=== PATIENT | female | born 1965 | race Caucasian/White ===

== ENCOUNTER 2016-12-10 09:10 | Emergency (ER) | payer BC ==
[2016-12-10 09:57] VITALS: BP 128/84
--- NOTE | 2016-12-10 11:18 | UC ---
Throat Pain/Nasal Lai HPI - HPI Summary HPI Summary: PT WITH H/O RECURRENT SINUSITIS, S/P SINUS SURG X2, P/W COUGH, SINUS CONGESTION/ PAIN/HEADACHE X 4 DAYS. - History of Current Complaint Chief Complaint: UCGeneralIllness Stated Complaint: SORE THROAT Time Seen by Provider: 12/10/16 10:48 Hx Obtained From: Patient ?: No Onset/Duration: Gradual Onset, Lasting Days - 4, Still Present Severity: Moderate Pain Intensity: 5 Associated Signs & Symptoms: Positive: Dysphagia - MILD PAIN, Hoarseness, Sinus Discomfort, Nasal Discharge. Negative: Drooling, Wheezing, Fever, Vomiting, Rash Related History: Prior ENT Surgery - Allergies/Home Medications Allergies/Adverse Reactions: Allergies Allergy/AdvReac Type Severity Reaction Status Date / Time No Known Allergies Allergy Verified 07/04/16 16:01 PMH/Surg Hx/FS Hx/Imm Hx Previously Healthy: Yes GI/ History Of: Reports: Gastroesophageal Reflux Psychological History Of: Reports: Depression Cancer History Of: Denies: Breast Cancer - Surgical History Surgical History: Yes Surgery Procedure, Year, and Place: appy 1997,sinus surgery and ; hysterectomy ; tubal ligation - Family History Known Family History: Positive: Hypertension Negative: Cardiac Disease, Diabetes - Social History Occupation: Employed Full-time Alcohol Use: None Substance Use Type: None Smoking Status (MU): Never Smoked Tobacco - Immunization History Most Recent Influenza Vaccination: 09/2014 Review of Systems ENT: Sore Throat, Ear Ache, Nasal Discharge, Other - HPI Respiratory: Cough Cardiovascular: Chest Pain - PLEURITIC Gastrointestinal: Negative Genitourinary: Negative Motor: Negative Neurovascular: Negative Musculoskeletal: Negative Neurological: Headache - SINUS Psychological: Negative All Other Systems Reviewed And Are Negative: Yes Physical Exam Triage Information Reviewed: Yes Appearance: Well-Appearing, No Pain Distress, Well-Nourished Vital Signs: Initial Vital Signs Temp 98.3 F 12/10/16 09:52 Pulse 80 12/10/16 09:52 Resp 16 12/10/16 09:52 BP 128/84 12/10/16 09:52 Pulse Ox 100 12/10/16 09:52 Vital Signs Reviewed: Yes Eyes: Positive: Conjunctiva Clear. Negative: Discharge ENT: Positive: Hearing grossly normal, Pharyngeal erythema, Nasal congestion, Nasal drainage, TMs normal, Muffled/hoarse voice - MILD. Negative: Tonsillar swelling, Tonsillar exudate, Trismus Dental Exam: Normal Neck: Positive: Supple, Nontender, No Lymphadenopathy Respiratory: Positive: Lungs clear, Normal breath sounds, No respiratory distress, No accessory muscle use, Expiration - PROLONGED Cardiovascular: Positive: RRR, No Murmur Musculoskeletal Exam: Normal Neurological: Positive: Alert, Muscle Tone Normal Psychological: Positive: Age Appropriate Behavior Skin Exam: Normal Throat Pain/Nasal Course/Dx - Differential Dx/Diagnosis Differential Diagnosis/HQI/PQRI: Pharyngitis, Sinusitis, Tonsillitis, URI Provider Diagnoses: SINUSITIS, BRONCHOSPASM Discharge - Discharge Plan Condition: Stable Disposition: HOME Prescriptions: Albuterol HFA INHALER* [Ventolin HFA Inhaler*] 2 puff INH Q4H PRN #1 mdi PRN Reason: Sob/Wheezing Amoxicillin/Clavulanate TAB* [Augmentin TAB 875*] 875 mg PO BID #20 tab guaiFENesin ER TAB [Mucinex*] 600 mg PO BID PRN #1 box PRN Reason: Cough guaiFENesin/CODIEN 100MG-10MG* [Robitussin AC 100Mg-10Mg*] 5 - 10 ml PO BEDTIME PRN #100 udc MDD 10ml PRN Reason: Cough Patient Education Materials: Amoxicillin/Clavulanate Potassium (By mouth), Sinusitis (ED), Bronchospasm (ED) Referrals: China Lugo MD [Primary Care Provider] - If Needed Additional Instructions: TRY USING THE KIMBERLY POT IN THE MORNINGS DISCUSSED. YOU MUST ALWAYS USE CLEAN WATER. REMEMBER, POSTURE PLAYS AN IMPORTANT ROLE IN SINUS DRAINAGE. SO, DON'T SLOUCH, MOVE YOUR NECK AND BREATHE. ANTIBIOTICS ARE NOT CURRENTLY INDICATED FOR YOUR CONDITION. HOWEVER, IF YOUR SYMPTOMS PERSIST FOR 4-5 MORE DAYS, YOU CAN START THE FOLLOWING MEDICINE: AUGMENTIN ANYTIME YOU TAKE AN ANTIBIOTIC IT IS VERY IMPORTANT TO REPLENISH YOUR BODY'S SUPPLY OF "GOOD" BACTERIA. YOU CAN DO THIS BY EATING HIGH QUALITY CULTURED FOODS SUCH LOCAL YOGURT, SOUR KRAUT AND MILADYS ALDAIR. YOU CAN ALSO TAKE A PROBIOTIC SUPPLEMENT.
== END 2016-12-10 11:14 | disposition home or self-care (01) ==
LOC: UCCORT 09:10
DX: J32.9 Chronic sinusitis, unspecified (principal); J98.01 Acute bronchospasm; Z98.890 Other specified postprocedural states
CPT/HCPCS: 99212; G0463

== ENCOUNTER 2017-10-11 10:55 | Emergency (ER) | payer BC ==
[2017-10-11 11:46] VITALS: BP 115/63
--- NOTE | 2017-10-11 12:22 | UC ---
Throat Pain/Nasal Lai HPI - HPI Summary HPI Summary: SIXTEEN DAYS OF SINUS CONGESTION, CHILLS, FACIAL PRESSURE AND COUGH. HISTORY OF SINUS SURGERY X2, MORE THAN FIVE YEARS AGO, DUE TO FREQUENT SINUS INFECTIONS. - History of Current Complaint Chief Complaint: UCGeneralIllness Stated Complaint: SINUS COMPLAINT Time Seen by Provider: 10/11/17 11:53 Hx Obtained From: Patient Onset/Duration: Gradual Onset, Lasting Weeks Severity: Moderate Pain Intensity: 3 Pain Scale Used: 0-10 Numeric Cough: Nonproductive Associated Signs & Symptoms: Positive: Sinus Discomfort, Nasal Discharge - Epiglottits Risk Factors Epiglottis Risk Factors: Negative - Allergies/Home Medications Allergies/Adverse Reactions: Allergies Allergy/AdvReac Type Severity Reaction Status Date / Time No Known Allergies Allergy Verified 10/11/17 11:46 Home Medications: Home Medications Ranitidine HCl [Eq Ranitidine] 75 mg PO DAILY 10/11/17 [History Confirmed ] PMH/Surg Hx/FS Hx/Imm Hx Previously Healthy: Yes - Surgical History Surgical History: Yes Surgery Procedure, Year, and Place: appy 1997,sinus surgery and ; hysterectomy ; tubal ligation. Left knee, repair miniscus - Family History Known Family History: Positive: Hypertension Negative: Cardiac Disease, Diabetes - Social History Occupation: Employed Full-time Lives: With Family Alcohol Use: Rare Substance Use Type: None Smoking Status (MU): Never Smoked Tobacco - Immunization History Most Recent Influenza Vaccination: 09/2014 Review of Systems Constitutional: Chills Skin: Negative Eyes: Negative ENT: Nasal Discharge, Sinus Congestion, Sinus Pain/Tenderness Respiratory: Cough Cardiovascular: Negative Gastrointestinal: Negative Genitourinary: Negative Motor: Negative Neurovascular: Negative Musculoskeletal: Negative Neurological: Negative Psychological: Negative Is Patient Immunocompromised?: No All Other Systems Reviewed And Are Negative: Yes Physical Exam Triage Information Reviewed: Yes Appearance: No Pain Distress, Well-Nourished, Ill-Appearing Vital Signs: Initial Vital Signs Temp 97.2 F 10/11/17 11:43 Pulse 71 10/11/17 11:43 Resp 16 10/11/17 11:43 BP 115/63 10/11/17 11:43 Pulse Ox 98 10/11/17 11:43 Vital Signs Reviewed: Yes Eye Exam: Normal ENT: Positive: Pharynx normal, Nasal congestion, Nasal drainage, TM bulging, TM dull Dental Exam: Normal Neck exam: Normal Neck: Positive: Supple, Nontender, No Lymphadenopathy Respiratory Exam: Normal Respiratory: Positive: Chest non-tender, Lungs clear, Normal breath sounds, No respiratory distress, No accessory muscle use Cardiovascular Exam: Normal Cardiovascular: Positive: RRR, No Murmur, Pulses Normal, Brisk Capillary Refill Abdominal Exam: Normal Musculoskeletal Exam: Normal Neurological Exam: Normal Psychological Exam: Normal Skin Exam: Normal Throat Pain/Nasal Course/Dx - Differential Dx/Diagnosis Differential Diagnosis/HQI/PQRI: Pharyngitis, Sinusitis, URI Provider Diagnoses: SINUSITIS Discharge - Discharge Plan Condition: Stable Disposition: HOME Prescriptions: Amoxicillin/Clavulanate TAB* [Augmentin TAB 875*] 875 mg PO BID #20 tab Patient Education Materials: Sinusitis (ED) Forms: *Work Release Referrals: China Lugo MD [Primary Care Provider] -
== END 2017-10-11 12:14 | disposition home or self-care (01) ==
LOC: UCCORT 10:55
DX: J32.9 Chronic sinusitis, unspecified (principal)
CPT/HCPCS: 99212; G0463

== ENCOUNTER 2018-03-02 07:01 | Emergency (ER) | payer BC ==
--- OUTSIDE RECORDS SUMMARY | 2018-03-02 07:11 | XMS REPORT ---
:1965 Author Name sound, ultra Care Team Providers Name Role Phone sound, ultra Unavailable Unavailable PROBLEMS Type Condition ICD9-CM [id number] Onset Condition SNOMED Code Code Code Dates Status Problem Mastodynia N64.4 Active 60106813 Problem Unspecified urinary R32 Active 208014955 incontinence Problem Abnormal weight gain R63.5 Active 887116392 Problem Pelvic and perineal R10.2 Active 112064170 pain Problem Lichen sclerosus et L90.0 Active 61167319 atrophicus Problem Noninflammatory N90.9 Active 312847831 disorder of vulva and perineum, unspecified Problem Frequency of R35.0 Active 105202752 micturition Problem Other spondylosis, M47.896 Active 05499191 lumbar region ALLERGIES No Information ENCOUNTERS Encounter Location Date Diagnosis [facility] Jan, [place] [id number] [facility] Jan, [facility]63.5 [facility] ; Pelvic and perineal pain [place], [place] [id number] R10.2 and Other spondylosis, lumbar region M47.896 [facility] Jan, Pelvic and perineal pain OBGYN [facility] R10.2 [place], [place] [id number] [facility] Jan, Abnormal weight gain R63.5 [facility] ; Pelvic and perineal pain [place], [place] [id number] R10.2 ; Frequency of micturition R35.0 and Other spondylosis, lumbar region M47.896 [facility] Nov, [place]BG[place], [place] [id number] [facility] Aug, [place] [id number] [place] [facility] Aug, Lichen sclerosus et OBGYN [facility] atrophicus L90.0 and [place], [place] [id number] Allergic contact dermatitis, unspecified cause L23.9 [place] [facility] Aug, [facility] vulva and perineum, [place] [id number] unspecified N90.9 and Lichen sclerosus et atrophicus L90.0 [place] [facility] Jul, [place] [id number] [place] [facility] Jun, Lichen sclerosus [facility] L[facility]0 [place] [id number] [place] [facility] May, [place] [id number] [place] [facility] Dec, [place] [id number] [place] [facility] Dec, Lichen sclerosus et [facility] L90.0 [place] [id number] [place] [facility] Sep, Lichen sclerosus et [facility] L90.0 [place] [id number] [place] [facility] Jun, [place] [id number] [place] [facility] May, [place] [id number] [facility] May, Lichen sclerosus et [address] [place], atrophicus L90.0 and [place] [id number] Mastodynia N64.4 [place] [facility] Apr, VULVAR LESION 624.9 OBGYN [place], [place] [id number] [place] [facility] March, Encounter for gynecological OBGYN [facility] examination (general) [place], [place] [id number] (routine) with abnormal findings Z01.411 ; Encounter for screening mammogram for malignant neoplasm of breast Z12.31 ; Encounter for screening for malignant neoplasm of colon Z12.11 ; Frequency of micturition R35.0 ; Noninflammatory disorder of vulva and perineum, unspecified N90.9 and Mastodynia N64.4 [place] [facility] Jan, [place], [place] [id number] [facility] Feb, [place], [place] [id number] [facility] Feb, ROUTINE AUTOMATIC EDGER EXAMINATION OBGYN [facility] V72.31 ; SCREEN MAMMOGRAM [place] [id number] NEC V76.12 ; Vaginitis NOS 616.10 ; VULVAR LESION 624.9 and Folliculitis 704.8 [facility] Dec, [place] [id number] [facility] May, [place]BG[place] [id number] [facility] Apr, [place] [id number] [address] Apr, Urge incontinence [address]88.[address] [place], [place] [id number] [place] [facility] March, FEM STRESS INCONTINENCE OBGYN [facility] [address] [place] [id number] [place] [facility] March, [place] [id number] [place] [facility] March, FEM STRESS INCONTINENCE OBGYN [facility] 625.6 [place], [place] [id number] [place] [facility] Feb, ROUTINE AUTOMATIC EDGER EXAMINATION OBGYN [facility] V72.31 ; SCREEN MAMMOGRAM [place] [id number] NEC V76.12 and Incontinence 788.30 [place] [facility] Feb, [place] [id number] [place] [facility] Feb, [place] [id number] [place] [facility] Feb, [place] [id number] [place] [facility] Feb, [place], [place] [id number] [place] [facility] Dec, [place] [id number] [facility] Jan, ROUTINE AUTOMATIC EDGER EXAMINATION OBGYN [facility] V72.31 and SCREEN MAMMOGRAM [place], [place] [id number] NEC V76.12 [place] [facility] Aug, Anemia NOS 285.9 [place], [place] [id number] [facility] Jun, Irregular bleeding NOS OBGYN [facility] 626.4 ; Levator syndrome [place], [place] [id number] 564.6 and Dysmenorrhea 625.3 [place] [facility] May, Irregular bleeding NOS OBGYN [facility] [address] 626.4 ; Levator syndrome [place] [id number] 564.6 and Dysmenorrhea 625.3 [place] [facility] May, [place], [place] [id number] [facility] [address] [place], May, [facility] [place] [id number] [place] [facility] Apr, Irregular bleeding NOS OBGYN [facility] 626.4 ; Levator syndrome [place], [place] [id number] 564.6 and Dysmenorrhea 625.3 [place] [facility] Apr, [place], [place] [id number] [place] [facility] Apr, [place] [id number] [place] [facility] March, [place] [id number] [place] [facility] March, [place] [id number] [place] [facility] March, Irregular bleeding NOS OBGYN [facility] 626.4 ; Levator syndrome [place], [place] [id number] 564.6 and Dysmenorrhea 625.3 [place] [facility] [address], [facility] [place] [id number] [facility] Feb, Irregular bleeding NOS OBGYN [facility] 626.4 and Stenosis of [place], [place] [id number] cervix 622.4 [facility] Feb, [place] [id number] [facility] Feb, [place], [place] [id number] [facility] Feb, Irregular bleeding NOS OBGYN [facility] 626.4 [place] [id number] [place] [facility] Feb, Irregular bleeding NOS OBGYN [facility] 626.4 and Stenosis of [place], [place] [id number] cervix 622.4 [place] [facility] Jan, [place] [id number] [place] [facility] Jan, [place], [place] [id number] [facility] Jan, ROUTINE AUTOMATIC EDGER EXAMINATION OBGYN [facility] V72.31 ; PAP SMEAR W/O AUTOMATIC EDGER [place], [place] [id number] EXAM V76.2 and Irregular bleeding NOS 626.4 [place] [facility] Sep, [place] [id number] [place] [facility] Sep, ROUTINE AUTOMATIC EDGER EXAMINATION OBGYN [facility] V72.31 [place] [id number] [place] [facility] March, [place], [place] [id number] [place] [facility] Oct, VULVAR LESION 624.9 [place] [id number] [place] [facility] Sep, VULVAR LESION 624.9 [place], [place] [id number] [place] [facility] Sep, VULVAR LESION 624.9 [place], [place] [id number] [place] [facility] Aug, ROUTINE AUTOMATIC EDGER EXAMINATION OBGYN [facility] V72.31 and VULVAR LESION [place], [place] [id number] 624.9 [place] [facility] Jun, [place], [place] [id number] [place] [facility] Jun, [place], [place] [id number] [place] [facility] May, ROUTINE AUTOMATIC EDGER EXAMINATION OBGYN [facility] V72.31 [place], [place] [id number] [place] [facility] May, Menometrorrhagia 626.2 [place], [place] [id number] [place] [facility] Apr, Menometrorrhagia 626.2 and OBGYN [facility] Endometrial polyp 621.0 [place], [place] [id number] [place] [facility] Apr, Menometrorrhagia 626.2 and OBGYN [facility] Endometrial polyp 621.0 [place] [id number] [place] [facility] Apr, [place] [id number] [place] [facility] March, [place], [place] [id number] [place] [facility] March, Menometrorrhagia 626.2 ; OBGYN [facility] Endometrial polyp 621.0 and [place], [place] [id number] VULVAR LESION 624.9 [place] [facility] March, Menometrorrhagia 626.2 [place] [id number] [place] [facility] March, Menometrorrhagia 626.2 [place] [id number] [place] [facility] March, Menorrhagia 626.2 and OBGYN [facility] Endometrial polyp 621.0 [place], [place] [id number] [place] [facility] March, VULVAR LESION 624.9 [place], [place] [id number] [place] [facility] Feb, [place] [id number] [place] [facility] Feb, [place] [id number] [place] [facility] Feb, [place] [id number] [place] [facility] Feb, [place], [place] [id number] [place] [facility] Feb, [place] [id number] [place] [facility] Feb, [place], [place] [id number] [facility] 07 Feb, 2008 Menometrorrhagia 626.2 ; OBGYN [facility] VULVAR LESION 624.9 ; [place], [place] [id number] Levator syndrome 564.6 and [place] [employer] [place] NEC 780.79 [facility] 20 Sep, 2007 OBGYN [place], [place] [id number] IMMUNIZATIONS No Known Immunizations SOCIAL HISTORY Never Assessed REASON FOR REFERRAL FUNCTIONAL STATUS PLAN OF CARE VITAL SIGNS MEDICATIONS Unknown Medications PROCEDURES Procedure Date Ordered Result Body Site TRANSVAGINAL US, NON-OB February 02, 2018 RESULTS Name Result Date Reference Range Ultrasound : Pelvis REASON FOR VISIT MEDICAL (GENERAL) HISTORY Type Description Date Medical History History of anemia Medical History depression Medical History acid reflux Medical History lichen sclerosis Medical History blood clot in joint after surgery Surgical History BTL 1997 Surgical History appedectomy 1995 Surgical History sinus/deviated septum 2000 & 2010 Surgical History Novasure in office 04/25/08 Surgical History Hysteroscopy, D/C 03/09/12 Surgical History LTH, BS, cystoscopy 05/09/12 Surgical History arthroscopy, left knee 05/24 Hospitalization History childbirth Hospitalization History see above
--- OUTSIDE RECORDS SUMMARY | 2018-03-02 07:12 | XMS REPORT ---
:1965 Author Organization [facility] Address [address] [place] [address] Care Team Providers Name Role Phone Kassie Holland Unavailable Unavailable PROBLEMS Type Condition ICD9-CM [id number] Onset Condition SNOMED Code Code Code Dates Status Problem Mastodynia N64.4 Active 46857978 Problem Unspecified urinary R32 Active 226361034 incontinence Problem Abnormal weight gain R63.5 Active 314264334 Problem Pelvic and perineal R10.2 Active 268512692 pain Problem Lichen sclerosus et L90.0 Active 53701580 atrophicus Problem Noninflammatory N90.9 Active 701556992 disorder of vulva and perineum, unspecified Problem Frequency of R35.0 Active 304324798 micturition Problem Other spondylosis, M47.896 Active 57632591 lumbar region ALLERGIES No Known Allergies ENCOUNTERS Encounter Location Date Diagnosis [facility] 103 Jan, OBGYN [place], [place] [id number] [facility] 103 Jan, Abnormal weight gain R63.5 [facility] ; Pelvic and perineal pain [place], [place] [id number] R10.2 and Other spondylosis, lumbar region M47.896 [facility] 103 Jan, Pelvic and perineal pain OBGYN [facility] R10.2 [place], [place] [id number] [facility] 103 Jan, Abnormal weight gain R63.5 [facility] ; Pelvic and perineal pain [place], [place] [id number] R10.2 ; Frequency of micturition R35.0 and Other spondylosis, lumbar region M47.896 [facility] 103 Nov, OBGYN [place] [id number] [facility] 103 Aug, OBGYN [place], [place] [id number] [facility] 103 Aug, Lichen sclerosus et OBGYN [facility] atrophicus L90.0 and [place], [place] [id number] Allergic contact dermatitis, unspecified cause L23.9 [facility] 103 Aug, [facility], [place] [id number] unspecified N90.9 and Lichen sclerosus et atrophicus L90.0 [facility] 103 Jul, OBGYN [place] [id number] [facility] 103 Jun, [facility]hen [facility]osus [facility] L[facility]0 [place] [id number] [facility] 103 May, OBGYN [place] [id number] [facility] 103 Dec, OBGYN [place] [id number] [facility] 103 Dec, Lichen sclerosus et OBGYN [facility] atrophicus L90.0 [place] [id number] [facility] 103 Sep, Lichen sclerosus et OBGYN [facility] atrophicus L90.0 [place] [id number] [facility] 103 Jun, OBGYN [place] [id number] [facility] 103 May, OBGYN [place], [place] [id number] [place] [facility] [address] [facility] May, Lichen sclerosus et OBGYN [address] [place], atrophicus L90.0 and [place] [id number] Mastodynia N64.4 [facility] 103 Apr, VULVAR LESION 624.9 OBGYN [place] [id number] [facility] 103 March, [facility] [place] [id number] (routine) with abnormal findings Z01.411 ; Encounter for screening mammogram for malignant neoplasm of breast Z12.31 ; Encounter for screening for malignant neoplasm of colon Z12.11 ; Frequency of micturition R35.0 ; Noninflammatory disorder of vulva and perineum, unspecified N90.9 and Mastodynia N64.4 [facility] 103 Jan, [place] [id number] [facility] 103 Feb, [place] [id number] [facility] 103 Feb, 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 HOTEL SERVICE SUPERVISOR EXAMINATION [facility] V72.31 ; SCREEN MAMMOGRAM [place] [id number] NEC V76.12 ; Vaginitis NOS 616.10 ; VULVAR LESION 624.9 and Folliculitis 704.8 [facility] 103 Dec, [place] [id number] [facility] 103 May, [place] [id number] [facility] 103 Apr, [place] [id number] [facility] Apr, Urge incontinence [address] [place], [place] [id number] [facility] 103 March, FEM STRESS INCONTINENCE [address] [id number] [facility] 103 March, OBGYN [place] [id number] [facility] 103 March, FEM STRESS INCONTINENCE OBN [address] [id number] [facility] 103 Feb, ROUTINE HOTEL SERVICE SUPERVISOR EXAMINATION OBGYN [facility] V72.31 ; SCREEN MAMMOGRAM [place], [place] [id number] NEC V76.12 and Incontinence 788.30 [facility] 103 Feb, OBGYN [place] [id number] [facility] 103 Feb, OBGYN [place] [id number] [facility] 103 Feb, OBGYN [place] [id number] [facility] 103 Feb, OBGYN [place] [id number] [facility] Dec, OBGYN [place] [id number] [facility] 103 Jan, ROUTINE HOTEL SERVICE SUPERVISOR EXAMINATION OBGYN [facility] V72.31 and SCREEN MAMMOGRAM [place], [place] [id number] NEC V76.12 [facility] 103 Aug, Anemia NOS 285.9 OBGYN [place] [id number] [facility] 103 Jun, Irregular bleeding NOS OBGYN [facility] 626.4 ; Levator syndrome [place], [place] [id number] 564.6 and Dysmenorrhea 625.3 [facility] 103 May, Irregular bleeding NOS OBGYN [facility] 626.4 ; Levator syndrome [place] [id number] 564.6 and Dysmenorrhea 625.3 [facility] 103 May, OBGYN [place] [id number] [facility] [address] [place], May, Medical [facility] [id number] [facility] 103 Apr, Irregular bleeding NOS OBGYN [facility] 626.4 ; Levator syndrome [place], [place] [id number] 564.6 and Dysmenorrhea 625.3 [facility] 103 Apr, OBGYN [place] [id number] [facility] 103 Apr, OBGYN [place], [place] [id number] [facility] 103 March, OBGYN [place] [id number] [facility] 103 March, OBGYN [place] [id number] [facility] 103 March, Irregular bleeding NOS OBGYN [facility] 626.4 ; Levator syndrome [place], [place] [id number] 564.6 and Dysmenorrhea 625.3 [facility] [address], [facility] [place] [id number] [facility] 103 Feb, Irregular bleeding NOS OBGYN [facility] 626.4 and Stenosis of [place] [id number] cervix 622.4 [facility] 103 Feb, OBGYN [place] [id number] [facility] Feb, OBGYN [place] [id number] [facility] 103 Feb, Irregular bleeding NOS OBGYN [facility] 626.4 [place], [place] [id number] [facility] 103 Feb, Irregular bleeding NOS OBGYN [facility] 626.4 and Stenosis [place], [place] [id number] cervix 622.4 [facility] 103 Jan, OBGYN [place] [id number] [facility] 103 Jan, OBGYN [place] [id number] [facility] 103 Jan, ROUTINE HOTEL SERVICE SUPERVISOR EXAMINATION OBGYN [facility] V72.31 ; PAP SMEAR W/O HOTEL SERVICE SUPERVISOR [place], [place] [id number] EXAM V76.2 and Irregular bleeding NOS 626.4 [facility] 103 Sep, OBGYN [place] [id number] [facility] 103 Sep, ROUTINE HOTEL SERVICE SUPERVISOR EXAMINATION OBGYN [facility] V72.31 [place] [id number] [facility] 103 March, OBGYN [place], [place] [id number] [facility] 103 Oct, VULVAR LESION 624.9 OBGYN [place] [id number] [facility] 103 Sep, VULVAR LESION 624.9 OBGYN [place] [id number] [facility] 103 Sep, VULVAR LESION 624.9 OBGYN [place] [id number] [facility] 103 Aug, ROUTINE HOTEL SERVICE SUPERVISOR EXAMINATION OBGYN [facility] V72.31 and VULVAR LESION [place] [id number] 624.9 [facility] 103 Jun, OBGYN [place], [place] [id number] [facility] 103 Jun, OBGYN [place], [place] [id number] [facility] 103 May, ROUTINE HOTEL SERVICE SUPERVISOR EXAMINATION OBGYN [facility] V72.31 [place] [id number] [facility] 103 May, Menometrorrhagia 626.2 OBGYN [place] [id number] [facility] 103 18 Apr, 2008 Menometrorrhagia 626.2 and OBGYN [facility] Endometrial polyp 621.0 [place], [place] [id number] [facility] 103 Apr, Menometrorrhagia 626.2 and OBGYN [facility] Endometrial polyp 621.0 [place], [place] [id number] [facility] 103 Apr, OBGYN [place] [id number] [facility] 103 March, OBGYN [place] [id number] [facility] 103 March, Menometrorrhagia 626.2 ; OBGYN [facility] Endometrial polyp 621.0 and [place] [id number] VULVAR LESION 624.9 [facility] 103 March, Menometrorrhagia 626.2 OBGYN [place] [id number] [facility] 103 March, Menometrorrhagia 626.2 OBGYN [place], [place] [id number] [facility] 103 March, Menorrhagia 626.2 and OBGYN [facility] Endometrial polyp 621.0 [place] [id number] [facility] 103 March, VULVAR LESION 624.9 OBGYN [place] [id number] [facility] 103 Feb, OBGYN [place] [id number] [facility] 103 Feb, OBGYN [place] [id number] [facility] 103 Feb, OBGYN [place] [id number] [facility] 103 Feb, OBGYN [place] [id number] [facility] 103 Feb, OBGYN [place] [id number] [facility] 103 Feb, [place], [place] [id number] [facility] 103 Feb, Menometrorrhagia 626.2 ; [facility] VULVAR LESION 624.9 ; [place] [id number] Levator syndrome 564.6 and MALAISE AND FATIGUE NEC 780.79 [facility] 103 Sep, [place], [place] [id number] IMMUNIZATIONS No Known Immunizations SOCIAL HISTORY Never Assessed REASON FOR REFERRAL FUNCTIONAL STATUS PLAN OF CARE Activity Details Follow Up due for annual, lab slip, vulvar colpo 08-25 Reason: Pending Test THYROID STIM HORMONE Pending Test FREE T4 VITAL SIGNS Height 63 in 2018-02-02 Weight 212 lbs 2018-02-02 BMI 37.55 kg/m2 2018-02-02 Blood pressure systolic 120 mm Hg 2018-02-02 Blood pressure diastolic 76 mm Hg 2018-02-02 MEDICATIONS Medication Instructions Dosage Frequency Start End Date Duration Status Date sertraline 50 orally once a day 1 tab(s) 24h 30 day(s) Active mg Clobetasol applied topically 1 guicho 30 days Active Propionate once a week 0.05% maintenance dose , then BID up to 21 days while symptomatic ranitidine 150 orally qd 1 cap(s) 24h Active mg PROCEDURES No Known procedures RESULTS No Results REASON FOR VISIT fu to us MEDICAL (GENERAL) HISTORY Type Description Date Medical [...]
[2018-03-02 07:19] VITALS: BP 109/65
--- NOTE | 2018-03-02 07:35 | UC ---
Ear Complaint HPI - HPI Summary HPI Summary: PATIENT PRESENTS WITH ABOUT 2 WEEKS OF RIGHT EAR PAIN THAT IS NOW MOVING INTO HER LEFT EAR. SHE HAS A MILD PRODUCTIVE COUGH AND CONGESTION WELL. UPON FURTHER QUESTIONING IT IS DISCOVERED THAT SHE IS ALSO EXPERIENCING SOME MIDSTERNAL CHEST DISCOMFORT THAT SHE DESCRIBES A "NAGGING "FEELING ALONG WITH SOME SHORTNESS OF BREATH AND NAUSEA. SHE'S HAD THE SYMPTOMS FOR ABOUT 2 DAYS AND STATES THEY ARE GETTING A LITTLE BIT WORSE. - History of Current Complaint Chief Complaint: UCEar Stated Complaint: CONGESTION EARS Time Seen by Provider: 03/02/18 07:18 Hx Obtained From: Patient Onset/Duration: Gradual Onset, Lasting Days, Still Present Severity Initially: Moderate Severity Currently: Moderate Pain Intensity: 5 Pain Scale Used: 0-10 Numeric Aggravating Factors: Nothing Alleviating Factors: Nothing Associated Signs/Symptoms: Positive: URI Symptoms - Allergies/Home Medications Allergies/Adverse Reactions: Allergies Allergy/AdvReac Type Severity Reaction Status Date / Time No Known Allergies Allergy Verified 03/02/18 07:17 Home Medications: Home Medications Levothyroxine TAB* [Synthroid 75 MCG TAB*] 75 mcg PO 0800 03/02/18 [History Confirmed 03/02/18] PMH/Surg Hx/FS Hx/Imm Hx Endocrine History: Hypothyroidism GI/ History: Gastroesophageal Reflux Psychological History: Depression - Surgical History Surgical History: Yes Surgery Procedure, Year, and Place: appy 1997,sinus surgery ' and ; hysterectomy '; tubal ligation. Left knee, repair miniscus - Family History Known Family History: Positive: Hypertension Negative: Cardiac Disease, Diabetes - Social History Alcohol Use: Rare Substance Use Type: None Smoking Status (MU): Never Smoked Tobacco - Immunization History Most Recent Influenza Vaccination: 09/2014 Review of Systems Constitutional: Fatigue ENT: Nasal Discharge Respiratory: Shortness Of Breath, Cough Cardiovascular: Chest Pain Gastrointestinal: Nausea All Other Systems Reviewed And Are Negative: Yes Physical Exam Triage Information Reviewed: Yes Appearance: Well-Appearing, Well-Nourished, Pain Distress - MILD Vital Signs: Initial Vital Signs Temp 98.1 F 03/02/18 07:09 Pulse 77 03/02/18 07:09 Resp 20 03/02/18 07:09 BP 109/65 03/02/18 07:09 Pulse Ox 97 03/02/18 07:09 Vital Signs Reviewed: Yes Eyes: Positive: Conjunctiva Clear ENT: Positive: Hearing grossly normal, Pharynx normal, TMs normal Neck: Positive: Supple, Nontender, No Lymphadenopathy Respiratory Exam: Normal Cardiovascular Exam: Normal Abdomen Description: Positive: Soft Musculoskeletal: Positive: No Edema Neurological: Positive: Alert Psychological: Positive: Age Appropriate Behavior Skin: Negative: rashes Diagnostics - EKG Cardiac Rate: NL - 77BPM Cardiac Rhythm: Sinus: Normal Ectopy: None ST Segment: Normal - To my knowledge Ear Complaint Course/Dx - Course Course Of Treatment: PATIENT MAY HAVE A RESPIRATORY INFECTION BUT GIVEN HER COMPLAINTS OF NAGGING CHEST PAIN, SHORTNESS OF BREATH, NAUSEA AND BACK PAIN FURTHER EVALUATION IN THE ED TO RULE OUT CARDIAC ETIOLOGY IS WARRANTED. PATIENT WILL GO BY PRIVATE CAR TO THE [facility] ED. - Differential Dx/Diagnosis Provider Diagnoses: CHEST PAIN, NOS - Physician Notifications Discussed Patient Care With: Cayetano Vyas MD - TO THE [facility] ED BY PRIVATE CAR Time Discussed With Above Provider: 07:45 Instructed by Provider To: MD Will See In ED Discharge - Sign-Out/Discharge Documenting (check all that apply): Discharge/Admit/Transfer - Discharge Plan Condition: Stable Disposition: HOME Patient Education Materials: Chest Pain (ED) Referrals: China Lugo MD [Primary Care Provider] - If Needed Additional Instructions: GIVEN YOUR PRESENTING SYMPTOMS OF CHEST PAIN, SHORTNESS OF BREATH, NAUSEA AND BACK PAIN I RECOMMEND YOU GO DIRECTLY TO THE ED FROM HERE FOR FURTHER EVALUATION. - Billing Disposition and Condition Condition: STABLE Disposition: HOME
== END 2018-03-02 07:48 | disposition home or self-care (01) ==
LOC: UCCORT 07:01
DX: R07.9 Chest pain, unspecified (principal)
CPT/HCPCS: 93005; 99212; G0463

== ENCOUNTER 2019-01-16 07:27 | Emergency (ER) | payer BC ==
[2019-01-16 08:16] VITALS: BP 103/64
[2019-01-16 08:34] LABS: Influenza A Molecular NEGATIVE (Negative); Influenza B Molecular NEGATIVE (Negative)
[2019-01-16] MEDS ORDERED: Albuterol 2.5 MG/3 ML NEB.SOL* (0.083%) INH ONE (08:49)
--- NOTE | 2019-01-16 08:49 | UC ---
General HPI - HPI Summary HPI Summary: DAY 3 OF HEAD CONGESTION, EAR PRESSURE, COUGH WITH CHEST CONGESTION AND SOME SOB. SUBJECTIVE F/C'S. NO ASTHMA. PRIOR HX PNEUMONIA X2. - History of Current Complaint Chief Complaint: UCRespiratory Stated Complaint: CHILLS,FEVER,COUGH,CONGESTION Time Seen by Provider: 01/16/19 08:26 Hx Obtained From: Patient Onset/Duration: Gradual Onset Timing: Constant Pain Intensity: 3 Associated Signs & Symptoms: Negative: Chest Pain - Allergy/Home Medications Allergies/Adverse Reactions: Allergies Allergy/AdvReac Type Severity Reaction Status Date / Time No Known Allergies Allergy Verified 01/16/19 08:12 Home Medications: Home Medications Cholecalciferol TAB* [Vitamin D TAB*] 1,000 unit PO DAILY 01/16/19 [History Confirmed 01/16/19] Vitamin THERAPEUTIC TAB* [Theragran TAB*] 1 tab PO DAILY 01/16/19 [History Confirmed 01/16/19] PMH/Surg Hx/FS Hx/Imm Hx - Additional Past Medical History Additional PMH: PNEUMONIA Endocrine History: Thyroid Disease - Surgical History Surgical History: Yes Surgery Procedure, Year, and Place: Gastric Sleeve, 2018, [place]; appy 1997, sinus surgery and ; hysterectomy ; tubal ligation. Left knee, repair miniscus - Family History Known Family History: Positive: Hypertension Negative: Cardiac Disease, Diabetes - Social History Occupation: Employed Full-time Alcohol Use: None Substance Use Type: None Smoking Status (MU): Never Smoked Tobacco - Immunization History Most Recent Influenza Vaccination: 09/2014 Review of Systems All Other Systems Reviewed And Are Negative: Yes Constitutional: Positive: Fever, Chills ENT: Positive: Ear Ache, Sinus Congestion Respiratory: Positive: Shortness Of Breath, Cough Cardiovascular: Negative: Palpitations, Chest Pain Physical Exam Triage Information Reviewed: Yes Appearance: Well-Appearing Vital Signs: Initial Vital Signs Temp 98 F 01/16/19 08:11 Pulse 90 01/16/19 08:11 Resp 16 01/16/19 08:11 BP 103/64 01/16/19 08:11 Pulse Ox 99 01/16/19 08:11 Vital Signs Reviewed: Yes Eyes: Positive: Conjunctiva Clear ENT: Positive: Pharynx normal, Nasal congestion, TMs normal. Negative: Nasal drainage, Sinus tenderness Neck: Positive: Supple, Nontender, No Lymphadenopathy Respiratory: Positive: Lungs clear, No respiratory distress, Other: - CONGESTED COUGH Cardiovascular: Positive: RRR, No Murmur Abdomen Description: Positive: Nontender, No Organomegaly, Soft Bowel Sounds: Positive: Present Musculoskeletal: Positive: ROM Intact Neurological: Positive: Alert Psychological: Positive: Age Appropriate Behavior Skin Exam: Normal Diagnostics - Radiology No standard instances Radiology Interpretation Completed By: Radiologist - cxr=IMPRESSION: NO EVIDENCE FOR ACTIVE CARDIOPULMONARY DISEASE. Re-Evaluation - Re-Evaluation First Eval Re-Evaluation Time: 09:14 Change: Improved - aeration improved and pt feels her breathing is easier. Course/Dx - Course Course Of Treatment: RAPID FLU=NEG - Differential Dx - Multi-Symptom Differential Diagnoses: Other - uri, sinusitis, bronchitis, pneumonia - Diagnoses Provider Diagnosis: URI (upper respiratory infection), Bronchitis Discharge - Sign-Out/Discharge Documenting (check all that apply): Patient Departure All imaging exams completed and their final reports reviewed: Yes - Discharge Plan Condition: Stable Disposition: HOME Prescriptions: Albuterol HFA INHALER* [Ventolin HFA Inhaler*] 2 puff INH Q6H #1 mdi Patient Education Materials: Upper Respiratory Infection (DC), Acute Bronchitis (ED) Forms: *Work Release Referrals: Kathy Vega NP [Primary Care Provider] - 5 Days - Billing Disposition and Condition Condition: STABLE Disposition: Home - Attestation Statements Provider Attestation: I was available for consult. This patient was seen by the JOANIE. The patient was not presented to, seen by, or examined by me. -Cora
== END 2019-01-16 09:27 | disposition home or self-care (01) ==
LOC: UCCORT 07:27
DX: J06.9 Acute upper respiratory infection, unspecified (principal); J40 Bronchitis, not specified as acute or chronic; E07.9 Disorder of thyroid, unspecified
CPT/HCPCS: 71046; 99212; G0463

== ENCOUNTER 2019-10-26 11:17 | Observation (INO) | payer BC ==
--- NOTE | 2019-10-17 13:05 | HP ---
HISTORY AND PHYSICAL: DATE OF ADMISSION/SURGERY: 10/26/19 DATE OF OFFICE VISIT: 10/11/19 SURGEON: Silvia Chang MD * (DICTATED BY NOHEMI TOVAR) PROCEDURE: Left total knee arthroplasty. CHIEF COMPLAINT: Left knee pain. HISTORY OF PRESENT ILLNESS: Ms. Nash is a 54-year-old female with continued complaints of left knee pain. She has failed conservative treatment and elected to proceed with a left total knee arthroplasty. PAST MEDICAL HISTORY: Anxiety and hypothyroidism. PAST SURGICAL HISTORY: Tubal ligation, hysterectomy, sinus surgery x2, appendectomy, and gastric sleeve. CURRENT MEDICATIONS: 1. Acetaminophen as needed. 2. Aleve as needed. 3. Multivitamin. 4. Levothyroxine 25 mcg a day. 5. Sertraline 50 mg a day. 6. Biotin. ALLERGIES: No known drug allergies. FAMILY HISTORY: Lung cancer. SOCIAL HISTORY: She is a 54-year-old female. She lives with her . She does not smoke or use drugs. Uses alcohol rarely. REVIEW OF SYSTEMS: A complete 14-point review of systems was reviewed with the patient, was all negative and noncontributory. She denies history of DVT, PE, hepatitis, HIV or anesthesia problems. PHYSICAL EXAMINATION GENERAL: She is well developed, well nourished, in no acute distress. VITAL SIGNS: She stands 5 feet tall, weighs 166 pounds. Her blood pressure is 110/68 and her heart rate is 68. HEENT: Normocephalic, atraumatic. NECK: Supple. No palpable lymph nodes. PULMONARY: The lungs are clear to auscultation bilaterally. CARDIO: Regular rate and rhythm. Strong S1, S2. ABDOMEN: Soft, nontender, nondistended. NEUROLOGICAL: She is alert and oriented x3. MUSCULOSKELETAL: Left lower extremity: The skin is intact. There are no open wounds or abrasions. There is some tenderness along the medial and lateral joint line. Range of motion is 5 to 120 degrees of flexion. She is able to dorsiflex and plantar flex. She has a 2+ dorsalis pedis pulse and intact sensation. ASSESSMENT AND PLAN: Ms. Nash is a 54-year-old female with end-stage osteoarthritis of the left knee. She has failed conservative treatment and elected to proceed with a left total knee arthroplasty. The surgery is scheduled for 10/26/[address] Chang discussed the risks and benefits of the surgery at today's visit and all of her questions were answered. She will follow with Dr. Chang 2 weeks after the surgery. NOHEMI TOVAR [id number]/[facility] #: [id number] KEO
[~2019-10-26 11:17] MED LIST: Acetaminophen TAB* 325 MG PO ONE; Buffered Lidocaine 1% SYRIN* 1 ML/SYRINGE INTRADERM ONE; Famotidine IV* 10 MG/ML 2 ML (20 mg) IV ONE; Gabapentin CAP(*) 300 MG PO ONE; Lactated Ringers 1000 ML Bag* 1,000 ML IV SCH; Tranexamic Acid 1,000 MG in NS 0.9% 50 ML* (outpatient use) IV SCH; celeCOXIB CAP* 200 MG PO ONE
--- OUTSIDE RECORDS SUMMARY | 2019-10-26 11:21 | XMS REPORT | Continuity of Care Document ---
:1965 External Reference #:[id number] Author Name Silvia Chang M.D. 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 Onset: 06/16/2019 Lumbosacral spondylosis without myelopathy Justen Ortiz M.D. Onset: Social History Type Date Description Comments Sex Unknown Tobacco Use Start: Unknown Never Smoked Cigarettes Tobacco Use Start: Unknown Never Smoked Cigars Tobacco Use Start: Unknown Never Smoked A Pipe Smokeless Tobacco Never Used Smokeless Tobacco ETOH Use Occasionally consumes alcohol Tobacco Use Start: Unknown Patient has never smoked Smoking Status Reviewed: 10/11/19 Patient has never smoked Allergies, Adverse Reactions, Alerts Description No Known Drug Allergies Medications Active Medications SIG Qnty Indications Ordering Date Provider Walker Front Wheel Walker 1units Z96.652 Estevan Hernandez 10[place]11[place]2019 [facility] [place] Mello knee replacement Ht 62" and weight 166lbs Cyclobenzaprine HCL take one tablet by 30tabs M54.81 Graeme 09/12/2018 10mg mouth at bedtime Hesham Paz Tablets Acetaminophen 2 tabs by mouth as Unknown 500mg needed Tablets Multivitamin Adults 1 tab by mouth Unknown daily Tablets Levothyroxine Sodium 1 tab by mouth Kathy Vega , daily. MORTGAGE LOAN COORDINATOR 25mcg Tablets Sertraline HCL 1 tablet daily Kathy Vega , 50mg MORTGAGE LOAN COORDINATOR Tablets Biotin one tablet daily Unknown 1mg Capsules Medications Administered in Office Medication SIG Qnty Indications Ordering Provider Date Depomedrol 40MG Silvia Chang M.D. 06/16/2019 Injection Celestone 3 mg and 3mg Graememaurilio Paz M.D. 09/12/2018 Injection Celestone 3 mg and 3mg GraemeLuis A GómezDFlaquita 09/12/2018 Injection Celestone 3 mg and 3mg Graeme Paz M.D. 09/05/2018 Injection Immunizations Description No Information Available Vital Signs Date Vital Result Comment 10/11/2019 2:49pm Height 62 inches 5'2" Weight 166.00 lb Heart Rate 68 /min BP Systolic 110 mmHg BP Diastolic 68 mmHg Respiratory Rate 18 /min Pain Level 8 BMI (Body Mass Index) 30.4 kg/m2 07/17/2019 3:01pm Height 62 inches 5'2" Weight 160.00 lb BP Systolic 118 mmHg BP Diastolic 68 mmHg Respiratory Rate 14 /min Body Temperature 97.4 F Pain Level 3 BMI (Body Mass Index) 29.3 kg/m2 Results Test Acquired Date Facility Test Result H/L Range Note CBC Auto 10/09/2019 [facility] White Blood 5.4 10^3/uL Normal 3.5-10.[address] [place] [address] [phone] Red Blood Count 4.26 10^6/uL Normal 3.70-4.87 Hemoglobin 13.1 g/dL Normal 12.0-16.0 Hematocrit 38 % Normal 35-47 Mean Corpuscular Volume 90 fL Normal 80-97 Mean Corpuscular Hemoglobin 31 pg Normal 27-31 Mean Corpuscular HGB Conc 34 g/dL Normal 31-36 Red Cell Distribution Width 13 % Normal 10-15 Platelet Count 330 10^3/uL Normal 150-450 Mean Platelet Volume 8.1 fL Normal 7.4-10.4 Abs Neutrophils 2.9 10^3/uL Normal 1.5-7.7 Abs Lymphocytes 1.8 10^3/uL Normal 1.0-4.8 Abs Monocytes 0.5 10^3/uL Normal 0-0.8 Abs Eosinophils 0.2 10^3/uL Normal 0-0.6 Abs Basophils 0.0 10^3/uL Normal 0-0.2 Abs Nucleated RBC 0.0 10^3/uL Granulocyte % 53.5 % Lymphocyte % 32.6 % Monocyte % 9.6 % Eosinophil % 3.6 % Basophil % 0.7 % Nucleated Red Blood Cells % 0.0 Urinalysis Profile 10/09/2019 [facility] Urine Color Yellow [address] [place] [address] [phone] Urine Appearance Clear Urine Specific [place] 1.010 Normal 1.010-1.030 Urine pH 6.0 Normal 5-9 Urine Urobilinogen Negative Negative Urine Ketones Negative Negative Urine Protein Negative Negative Urine Leukocytes Negative Negative Urine Blood Negative Negative Urine Nitrite Negative Negative Urine Bilirubin Negative Negative Urine Glucose Negative Negative Inr/Protime 10/09/2019 [facility] Inr 1.01 Normal 0.82-1.09 1 [address] [place] [address] [phone] Laboratory test 10/09/2019 [facility] Activated 38.1 High 26.0 -38.[address] [place] [address] Thrombo Time [phone] Comp Metabolic 10/09/2019 [facility] Sodium 140 mmol/L Normal 135-145 Panel [address] [place] [address] [phone] Potassium 4.5 mmol/L Normal 3.5-5.0 Chloride 105 mmol/L Normal 101-111 Co2 Carbon Dioxide 29 mmol/L Normal 22-32 Anion Gap 6 mmol/L Normal 2-11 Glucose 86 mg/dL Normal 70-100 Blood Urea Nitrogen 20 mg/dL Normal 6-24 Creatinine 1.13 mg/dL High 0.51-0.95 BUN/Creatinine Ratio 17.7 Normal 8-20 Calcium 9.7 mg/dL Normal 8.6-10.3 Total Protein 6.7 g/dL Normal 6.4-8.9 Albumin 4.3 g/dL Normal 3.2-5.2 Globulin 2.4 g/dL Normal 2-4 Albumin/Globulin Ratio 1.8 Normal 1-3 Total Bilirubin 0.40 mg/dL Normal 0.2-1.0 Alkaline Phosphatase 87 U/L Normal 34-104 Alt 13 U/L Normal 7-52 Ast 16 U/L Normal 13-39 Egfr Non- 50.2 >60 Egfr 60.7 >60 2 Type & Screen 10/09/2019 [facility] Patient Blood Type A Positive [address] [place] [address] [phone] Antibody Screen NEGATIVE Urine Culture And 10/09/2019 [facility] Urine Culture SEE RESULT [address] [place] [address] [phone] 1 Standard intensity warfarin therapeutic range: 2.0-3.0 High intensity warfarin therapeutic range: 2.5-3.5 2 Because ethnic data is not always readily available, this report includes an eGFR for both -Americans and non- Americans. The National Kidney Disease Education Program (NKDEP) does not endorse the use of the MDRD equation for patients that are not between the ages of 18 and 70, are , have extremes of body size, muscle mass, or nutritional status, or are non- or non-. According to the National Kidney Foundation, irrespective of diagnosis, the stage of the disease is based on the level of kidney function: Stage Description GFR(mL/min/1.73 m(2)) 1 Kidney damage with normal or decreased GFR 90 2 Kidney damage with mild decrease in GFR 60-89 3 Moderate decrease in GFR 30-59 4 Severe decrease in GFR 15-29 5 Kidney failure <15 (or dialysis) 3 SEE RESULT BELOW Name: FLORMAYRA FOSTER : [address]: Silvia Chang MD Acct: [id number] Unit: [id number] AGE: 54 Location: [facility] Re10/09/19 SEX: F Status: REG REF SPEC: [id number] BERNARDA: 10/09/19 [facility] DR: Silvia Chang MD REQ: [id number] RECD: 10/09/19 STATUS: COMP IDA DR: Kathy Vega MORTGAGE LOAN COORDINATOR _ SOURCE: URINE SPDESC: ORDERED: Urine Culture QUERIES: Urine Source: Clean Catch Procedure Result Reported Site Urine Culture Final 10/10/19- 1008 ML No Growth (<1,000 CFU/mL) * ML - Main Lab . END OF REPORT DEPARTMENT OF PATHOLOGY, [address] [place] [address] Conner Porter M.D. Director [facility] # [id number] Procedures Date Code Description Status 06/16/201998885 Inject/Drain Joint/Bursa Major W/O US Completed Medical Devices Description No Information Available Encounters Type Date Location Provider Dx Diagnosis Office Visit 07/17/2019 [facility] Silvia Chang, M25.562 Pain in left knee 2:45p at [facility]Drew M25.462 Effusion, left knee M17.12 Unilateral primary osteoarthritis, left knee Office Visit 06/16/2019 8:00a [facility] Silvia Chang M25.562 Pain in left at [facility].Drew knee M25.462 Effusion, left knee M17.12 Unilateral primary osteoarthritis, left knee Assessments Date Code Description Provider 10/11/2019 M17.12 Unilateral primary osteoarthritis, left knee Silvia Chang M.D. 10/11/2019 M25.462 Effusion, left knee Silvia Chang M.D. 10/11/2019 M25.562 Pain in left knee Silvia Chang M.D. 07/17/2019 M25.562 Pain in left knee Silvia Chang M.D. 07/17/2019 M25.462 Effusion, left knee Silvia Chang M.D. 07/17/2019 M17.12 Unilateral primary osteoarthritis, left knee Silvia Chang M.D. 06/16/2019 M25.562 Pain in left knee Silvia Chang M.D. 06/16/2019 M25.462 Effusion, left knee Silvia Chang M.D. 06/16/2019 M17.12 Unilateral primary osteoarthritis, left knee Silvia Chang M.D. Plan of Treatment Future Appointment(s):11/10/2019 3:30 pm - Silvia Chang M.D. at [facility] at Mkrnat5210/26/2019 1:30 pm - Rainer Rahman PA-C at [facility] at Zashjw5810/26/2019 1:30 pm - NOHEMI Irvin at [facility] at Tcybri7010/26/2019 1:30 pm - Silvia Chang M.D. at [facility] at Vfhoyq6810/11/2019 - Silvia Chang M.D.M17.12 Unilateral primary osteoarthritis, left kneeFollow up:Follow up: 2 weeks after dxdpdinY92.462 Effusion, left kneeM25.562 Pain in left knee Functional Status Description No Information Available Mental Status Description No Information Available Referrals Description No Information Available
--- OUTSIDE RECORDS SUMMARY | 2019-10-26 11:21 | XMS REPORT | Continuity of Care Document ---
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 Onset: 05/05/2017 Knee joint effusion Marine Husain PA Onset: 04/07/2017 Derangement of knee Marine Husain PA Onset: 03/22/2017 Localized, primary osteoarthritis Marine Husain PA Onset: 03/22/2017 Social History Type Date Description Comments Sex Unknown Tobacco Use Start: Unknown Never Smoked Cigarettes ETOH Use Rarely consumes alcohol Tobacco Use Start: Unknown Patient has never smoked Recreational Drug Use Denies Drug Use Smoking Status Reviewed: 09/05/19 Patient has never smoked Allergies, Adverse Reactions, Alerts Description No Known Drug Allergies Medications Active Medications SIG Qnty Indications Ordering Provider Date Levothyroxine Sodium 1 by mouth 90tabs Kathy Vega, 02/16/2018 25mcg every day PNP-VANNA, BOOKKEEPING MACHINE OPERATOR, Tablets Ibclc Fluticasone Propionate 2 sprays each 16gm J01.90 Kathy Vega, 11/02/2017 nare once a day PNP-BC, BOOKKEEPING MACHINE OPERATOR, 50mcg/Act Suspension Ibclc Azelastine HCL (Nasal) 1-2 spray each 30ml J01.90 Kathy Vega, 2016 nare bid PNP-BC, BOOKKEEPING MACHINE OPERATOR, 137mcg/[place] Solution Ibclc Sertraline HCL Take 1 Tablet 90tabs Kathy Vega, 12/01/2011 50mg Tablets By Mouth Once PNP-BC, BOOKKEEPING MACHINE OPERATOR, Daily Ibclc Vitamin D-1000 Maximum 1 by mouth Unknown Strength every day 1000Unit Tablets Medications Administered in Office Medication SIG Qnty Indications Ordering Provider Date Methylprednisolone acetate Marine Husain PA 04/07/2017 (Depomedrol) 80mg injection Injection Immunizations CPT Code Status Date Vaccine Lot # [id number] Given 08/27/2014 flu vaccination 48548 Given 07/26/2013 flu vaccination 99053 Given 10/01/2010 flu vaccination Vital Signs Date Vital Result Comment 09/05/2019 3:24pm BP Systolic 126 mmHg BP Diastolic 76 mmHg Body Temperature 97.9 F Heart Rate 87 /min Respiratory Rate 18 /min Height 63.25 inches 5'3.25" Weight 166.00 lb BMI (Body Mass Index) 29.2 kg/m2 BSA (Body Surface Area) 1.79 m2 [place] body weight in kilograms 53 kg 02/21/2019 10:43am BP Systolic 95 mmHg BP Diastolic 52 mmHg Heart Rate 90 /min Respiratory Rate 17 /min Height 63.25 inches 5'3.25" Weight 167.00 lb BMI (Body Mass Index) 29.3 kg/m2 BSA (Body Surface Area) 1.80 m2 [place] body weight in kilograms 53 kg Results Test Acquired Date Facility Test Result H/L Range Note Laboratory test 09/06/2019 [facility] Thyroid Stim 1.45 uIU/mL Normal 0.30- 4.20 1 finding [address] [place] [address] [phone] E03.9 Procedures Date Code Description Status 11/03/2016 22565169 Colonoscopy Completed 03/17/2016 90922039 Mammogram Completed 03/13/2015 73484317 Mammogram Completed Medical Devices Description No Information Available Encounters Type Date Location Provider Dx Diagnosis Office Visit 09/05/2019 [facility] Kathy Vega, E03.9 Hypothyroidism, 3:30p [facility] PNP-BC, BOOKKEEPING MACHINE OPERATOR, unspecified Ibclc Assessments Date Code Description Provider 09/05/2019 E03.9 Hypothyroidism, unspecified Kathy Vega, PNP-BC, BOOKKEEPING MACHINE OPERATOR, Ibclc Plan of Treatment Future Appointment(s):10/09/2019 3:15 pm - Kathy Vega PNP-BC, BOOKKEEPING MACHINE OPERATOR, Ibclc at [facility]09/05/2019 - Kathy Vega PNP-BC, BOOKKEEPING MACHINE OPERATOR, OdhpuG91.9 Hypothyroidism, unspecifiedComments:we'll check your levels and go from there. Functional Status Description No Information Available Mental Status Description No Information Available Referrals Description No Information Available
--- OUTSIDE RECORDS SUMMARY | 2019-10-26 11:21 | XMS REPORT | Continuity of Care Document ---
:1965 External Reference #:[id number] Author Name Kathy Vega, TESS, PREP COOK, Ibclc Address [address] [place] [phone] Care Team Providers Name Role Phone Kathy Vega PNP-BC, PREP COOK, Ibclc Care Team Information Renal Case Manager [phone] Family Carola Moreno,[facility] - Surgical Care Team Information Renal Case Manager [phone] Problems Active Problems Provider Date Single major depressive episode Dalila Rizvi, CHAMBER WALKER Onset: 10/29/2011 Thoracic and lumbosacral neuritis Candida [...] Use Denies Drug Use Smoking Status Reviewed: 10/09/19 Patient has never smoked Allergies, Adverse Reactions, Alerts Description No Known Drug Allergies Medications Active Medications SIG Qnty Indications Ordering Provider Date Levothyroxine Sodium 1 by mouth 90tabs Kathy Vega, 02/16/2018 25mcg every day PNP-VANNA, PREP COOK, Tablets Ibclc Fluticasone Propionate 2 sprays each 16gm J01.90 Kathy Vega, 11/02/2017 nare once a day PNP-BC, PREP COOK, 50mcg/Act Suspension Ibclc Azelastine HCL (Nasal) 1-2 spray each 30ml J01.90 Kathy Vega, 2016 nare bid PNP-BC, PREP COOK, 137mcg/[place] Solution Ibclc Sertraline HCL Take 1 Tablet 90tabs Kathy Vega, 12/01/2011 50mg Tablets By Mouth Once PNP-BC, PREP COOK, Daily Ibclc Vitamin D-1000 Maximum 1 by mouth Unknown Strength every day 1000Unit Tablets Biotin Z01.818 Unknown 5mg Tablets Medications Administered in Office Medication SIG Qnty Indications Ordering Provider Date Methylprednisolone acetate Marine Husain PA 04/07/2017 (Depomedrol) 80mg injection Injection Immunizations CPT Code Status Date Vaccine Lot # [id number] Given 08/27/2014 flu vaccination 13410 Given 07/26/2013 flu vaccination 67469 Given 10/01/2010 flu vaccination Vital Signs Date Vital Result Comment 10/09/2019 3:16pm BP Systolic 101 mmHg BP Diastolic 67 mmHg Body Temperature 97.9 F Heart Rate 71 /min Respiratory Rate 18 /min Weight 167.25 lb O2 % BldC Oximetry 97 % Pain Level 0 09/05/2019 3:24pm BP Systolic 126 mmHg BP Diastolic 76 mmHg Body Temperature 97.9 F Heart Rate 87 /min Respiratory Rate 18 /min Height 63.25 inches 5'3.25" Weight 166.00 lb BMI (Body Mass Index) 29.2 kg/m2 BSA (Body Surface Area) 1.79 m2 [place] body weight in kilograms 53 kg Results Test Acquired Date Facility Test Result H/L Range Note CBC Auto 10/09/2019 [facility] White Blood 5.4 10^3/ uL Normal 3.5-10.8 Diff [phone] Count Red Blood Count 4.26 10^6/uL Normal 3.70-4.87 [...] Blood Cells % 0.0 Urinalysis Profile 10/09/2019 [facility] Urine Color Yellow [phone] Urine Appearance Clear Urine Specific [place] 1.010 Normal 1.010-1.030 Urine pH 6.0 Normal 5-9 Urine Urobilinogen Negative Negative Urine Ketones Negative Negative Urine Protein Negative Negative Urine Leukocytes Negative Negative Urine Blood Negative Negative Urine Nitrite Negative Negative Urine Bilirubin Negative Negative Urine Glucose Negative Negative Inr/Protime 10/09/2019 [facility] Inr 1.01 Normal 0.82-1.09 8 [phone] Laboratory test 10/09/2019 [facility] Activated 38.1 High 26.0-38.0 finding [phone] Partial seconds Thrombo Time Comp Metabolic 10/09/2019 [facility] Sodium 140 mmol/ L Normal 135-145 Panel [phone] Potassium 4.5 mmol/L Normal 3.5-5.0 Chloride 105 [...] 60.7 >60 2 Type & Screen 10/09/2019 [facility] Patient Blood A Positive [phone] Type Antibody Screen NEGATIVE Urine Culture And 10/09/2019 [facility] Urine SEE RESULT 3 Sensitivities [phone] Culture BELOW Laboratory test 09/06/2019 [facility] Thyroid Stim 1.45 uIU/mL Normal 0.30- [address] Hormone 4.20 [place] [address] [phone] 1 Standard intensity warfarin therapeutic range: 2.0-3.0 [...] (or dialysis) 3 SEE RESULT BELOW Name: MAYRA NASH : [address]: Silvia Chang MD Acct: [id number] Unit: [id number] AGE: 54 Location: [facility] Re10/09/19 SEX: F Status: REG REF SPEC: [id number] BERNARDA: 10/09/[address]: Silvia Chang MD REQ: [id number] RECD: 10/09/19 STATUS: COMP OTHR DR: Katyh Vega CHAMBER WALKER _ SOURCE: URINE SPDESC: ORDERED: Urine Culture QUERIES: Urine Source: Clean Catch Procedure Result Reported Site Urine Culture Final 10/10/19- 1008 ML No Growth (<1,000 CFU/mL) * - Main Lab . END OF REPORT DEPARTMENT OF PATHOLOGY, [address] [place] [address] Conner Porter M.D. Director [facility] # [id number] 4 E03.9 Procedures Date Code Description Status 11/03/2016 [id number] Colonoscopy Completed 03/17/2016 07846725 Mammogram Completed 03/13/2015 [id number] Mammogram Completed Medical Devices Description No Information Available Encounters Type Date Location Provider Dx Diagnosis Office Visit 10/09/2019 Family [facility] Kathy Vega, Z01.818 Encounter for other 3:15p Francesco CORTEZ PNP-BC, PREP COOK, preprocedural Ibclc examination Office Visit 09/05/2019 Family Kathy Desai, E03.9 Hypothyroidism, 3:30p Francesco CORTEZ PNP-BC, PREP COOK, unspecified Ibclc Assessments Date Code Description Provider 10/09/2019 Z01.818 Encounter for other preprocedural Kathy Vega PNP-BC, PREP COOK, examination Ibclc 09/05/2019 E03.9 Hypothyroidism, unspecified Kathy Vega PNP-BC, PREP COOK, Ibclc Plan of Treatment No Information Available Functional Status Description No Information Available Mental Status Description No Information Available Referrals Description No Information Available
--- OUTSIDE RECORDS SUMMARY | 2019-10-26 11:21 | XMS REPORT | Continuity of Care Document ---
:1965 External Reference #:[id number] Author Name Silvia Chang M.D. (transmitted by agent of provider Arely Moreno) Address [address] 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 [facility] 5ft 2 in; 166lbs Cyclobenzaprine HCL take one tablet by 30tabs M54.81 Graeme 09/12/2018 10mg mouth at bedtime Hesham Paz Tablets Acetaminophen 2 tabs by mouth as Unknown 500mg needed Tablets Multivitamin Adults 1 tab by mouth Unknown daily Tablets Levothyroxine Sodium 1 tab by mouth Kathy Vega , daily. DANCE COSTUME DESIGNER 25mcg Tablets Sertraline HCL 1 tablet daily Kathy Vega , 50mg DANCE COSTUME DESIGNER Tablets Biotin one tablet daily Unknown 1mg Capsules Medications Administered in Office Medication SIG Qnty Indications Ordering Provider Date Depomedrol 40MG Silvia Chang M.D. 06/16/2019 Injection Celestone 3 mg and 3mg Graeme Paz M.D. 09/12/2018 Injection Celestone 3 mg and 3mg Graememaurilio [...] Result H/L Range Note CBC Auto 10/09/2019 [facility] White Blood 5.4 10^3/uL Normal 3.5-10.[address] [place] [address] [phone] Red Blood Count 4.26 10^6/uL Normal 3.70-4.87 [...] Blood Cells % 0.0 Urinalysis Profile 10/09/2019 [facility] Urine Color Yellow [address] [place] [address] [phone] Urine Appearance Clear Urine Specific [place] 1.010 Normal 1.010-1.030 Urine pH 6.0 Normal 5-9 Urine Urobilinogen Negative Negative Urine Ketones Negative Negative Urine Protein Negative Negative Urine Leukocytes Negative Negative Urine Blood Negative Negative Urine Nitrite Negative Negative Urine Bilirubin Negative Negative Urine Glucose Negative Negative Inr/Protime 10/09/2019 [facility] Inr 1.01 Normal 0.82-1.09 1 [address] [place] [address] [phone] Laboratory test 10/09/2019 [facility] Activated 38.1 High 26.0 -38.[address] [place] [address] Thrombo Time [phone] Comp Metabolic 10/09/2019 [facility] Sodium 140 mmol/L Normal 135-145 Panel [address] [place] [address] [phone] Potassium 4.5 mmol/L Normal 3.5-5.0 Chloride 105 [...] 60.7 >60 2 Type & Screen 10/09/2019 [facility] Patient Blood Type A Positive [address] [place] [address] [phone] Antibody Screen NEGATIVE Urine Culture And 10/09/2019 [facility] Urine Culture SEE RESULT [address] [place] [address] [phone] 1 Standard intensity warfarin therapeutic range: 2.0-3.0 [...] dialysis) 3 SEE RESULT BELOW Name: FLORMAYRA : [address]: Silvia Chang MD Acct: [id number] Unit: [id number] AGE: 54 Location: [facility] Re10/09/19 SEX: F Status: REG REF SPEC: [id number] BERNARDA: 10/09/[address] [facility] [address]: Silvia Chang MD REQ: [id number] RECD: 10/09/19 STATUS: COMP OLUHR DR: Kathy Vega DANCE COSTUME DESIGNER _ SOURCE: URINE SPDESC: ORDERED: Urine Culture QUERIES: Urine Source: Clean Catch Procedure Result Reported Site Urine Culture Final 10/10/19- 1008 ML No Growth (<1,000 CFU/mL) * ML - Main Lab . END OF REPORT DEPARTMENT OF PATHOLOGY, [address] [place] [address] Conner Porter M.D. Director [facility] # [id number] Procedures Date Code Description Status 06/16/201914301 Inject/Drain Joint/Bursa Major W/O US Completed Medical Devices Description No Information Available Encounters Type Date Location Provider Dx Diagnosis Office Visit 07/17/2019 [facility] Silvia Chang, M25.562 Pain in left knee 2:45p at [facility].Drew M25.462 Effusion, left knee M17.12 Unilateral primary osteoarthritis, left knee Office Visit 06/16/2019 8:00a [facility] Silvia Chang, M25.562 Pain in left at [facility].Drew knee M25.462 Effusion, left knee M17.12 Unilateral [...] 3:30 pm - Silvia Chang M.D. at [facility] at Wefjgj7510/26/2019 12:15 pm - Rainer Rahman PA-C at [facility] at Jeaqwf9610/26/2019 12:15 pm - NOHEMI Irvin at [facility] at Cpiidn1010/26/2019 12:15 pm - Silvia Chang M.D. at [facility] at Tocmoe1410/11/2019 - Silvai Chang M.D.M17.12 Unilateral primary osteoarthritis, left kneeFollow up:Follow up: 2 weeks after wwcifslQ60.462 Effusion, left kneeM25.562 Pain in left knee Functional Status Description No Information Available Mental Status Description No Information Available Referrals Description No Information Available
[2019-10-26] MEDS ORDERED: Gabapentin CAP(*) 300 MG ONE (12:10)
[2019-10-26] MEDS ORDERED: Famotidine IV* 10 MG/ML 2 ML (20 mg) ONE (12:11)
[2019-10-26] MEDS ORDERED: celeCOXIB CAP* 200 MG ONE (12:11)
[2019-10-26] MEDS ORDERED: ceFAZolin 2 GM in NS PREMIX(*) 2 GM/100 ML BAG IVPB ONE (12:11)
[2019-10-26] MEDS ORDERED: Acetaminophen TAB* 325 MG ONE (12:11)
[2019-10-26] MEDS ORDERED: Lidocaine 2% PF * 5 ML VIAL ONE ×2 (13:57→15:51)
[2019-10-26] MEDS ORDERED: Midazolam* 1 MG/ML 10 ML VIAL (10 MG) ONE (13:57)
[2019-10-26] MEDS ORDERED: fentaNYL* 50 MCG/ML 2 ML VIAL (100 MCG VIAL) ONE (13:57)
[2019-10-26] MEDS ORDERED: Dexamethasone IV* 4 MG/ML 1 ML (4 MG) ONE (13:57)
[2019-10-26] MEDS ORDERED: Ondansetron INJ* 2 MG/ML VIAL ONE ×2 (13:57→18:17)
[2019-10-26] MEDS ORDERED: ROPIVACAINE 5 MG/ML 30 ML BTL (0.5%) ONE ×2 (13:57→15:15)
[2019-10-26] MEDS ORDERED: Propofol* 10 MG/ML 20 ML BTL ONE (13:57)
[2019-10-26] MEDS ORDERED: KETAMINE HCL* 50 MG/ML 10 ML VIAL ONE (13:58)
[2019-10-26] MEDS ORDERED: Bupivacaine 0.5% SDV PF* 30ML VIAL ONE (15:28)
[2019-10-26] MEDS ORDERED: Propofol* 500 MG/50 ML BTL ONE (15:51)
[2019-10-26] MEDS ORDERED: diPHENhydraMINE IV* 50 MG/ML 1 ml VIAL (BENADRYL) IV PRN (16:35)
[2019-10-26] MEDS ORDERED: oxyCODONE/Acetamin 5/325 MG* TAB PO PRN (16:35)
[2019-10-26] MEDS ORDERED: Morphine INJ* 2 MG/ML 1 ML SYRINGE (TWO MG - NEW SYRINGE VERSION) IV PRN (16:35)
[2019-10-26] MEDS ORDERED: diPHENhydraMINE PO* 25 MG PO PRN (16:35)
[2019-10-26] MEDS ORDERED: Cyclobenzaprine TAB* 10 MG PO PRN (16:35)
[2019-10-26] MEDS ORDERED: Ondansetron ODT TAB* 4 MG PO PRN (16:35)
[2019-10-26] MEDS ORDERED: Magnesium Hydroxide LIQ* 30 ML UDC PO PRN (16:35)
[2019-10-26] MEDS ORDERED: Ondansetron INJ* 2 MG/ML VIAL IV PRN ×2 (16:35→16:42)
[2019-10-26] MEDS ORDERED: Cetirizine* 10 MG TAB PO PRN (16:42)
[2019-10-26] MEDS ORDERED: fentaNYL* 50 MCG/ML 2 ML VIAL (100 MCG VIAL) IV PRN (16:42)
[2019-10-26] MEDS ORDERED: Acetaminophen TAB* 325 MG PO PRN (16:42)
[2019-10-26] MEDS ORDERED: Naloxone* 0.4 MG/ML 1 ML VIAL IV PRN (16:42)
[2019-10-26] MEDS ORDERED: Lactated Ringers 1000 ML Bag* 1,000 ML IV SCH (17:00)
--- NOTE | 2019-10-26 18:56 | OP ---
Operative Report - Blank - Operative Report Date of Operation: 10/26/19 Note: NEEL RAY 1965 Date of Surgery: 10/26/19 Silvia Chang MD Orthopedic Physician Assistant: Fran SONG did help throughout the procedure with preparation of the knee, wound retraction, manipulation of the knee, and wound closure. Anesthesiologist: Lakhwinder Oh MD Anesthesia Type: Spinal Preoperative Diagnosis: Left severe degenerative osteoarthritis of the knee Postoperative Diagnosis: As above Procedure Performed: Left Total Knee Arthroplasty Tourniquet time: 37 minutes Complications: None Specimen: Bone and cartilage from the left knee joint sent to pathology. Hardware Used: Cemented Valle[employer] Nephew total knee hardware was used - For the femur a size 5 narrow left oxinium legion posterior stabilized femoral component , for the tibia a size 3 left obdulio II tibial baseplate, for the insert a size 9mm 3-4 posterior stabilized articular polyethylene insert, and for the patella a size 32 3-peg all poly patella. Brief History/Indication: NEEL RAY was known in clinic and had a history of severe left knee pain and swelling. She failed conservative treatment with anti-inflammatories, pain pills, intra-articular injections and physical therapy. She elected to undergo left total knee arthroplasty due to continued pain and decreased quality of life. Radiographs showed severe end stage osteoarthritis of the knee with bone on bone contact. Informed consent was obtained from the patient. She understood the risks of surgery included but were not limited to: bleeding, infection, damage to nearby structures, intraoperative fracture, nerve palsy, failure of the hardware, early loosening, knee stiffness or loss of motion, anesthesia complications, stroke, heart attack , blood clot and . She wished to proceed. Intra-Operative Findings: Intraoperatively the patient was noted to have severe loss of cartilage in all 3 compartments of the knee. Description of the Procedure: NEEL RAY was identified in the preanesthesia unit. Her left knee was marked as the correct operative side. Informed consent was signed and placed in the chart. The patient was taken to the operating room and placed under anesthesia without complication. A hansen catheter was placed. A tourniquet was placed on the left thigh. The left lower extremity was prepped and draped in the usual sterile fashion. Preoperative time-out was made to correctly identify the patient, side and site. Appropriate intraoperative antibiotics were given within one hour of incision. Tourniquet was inflated. A midline incision was made and carried sharply down to the extensor mechanism. A new 10 blade was used to make a standard medial parapatellar arthrotomy. The patella was subluxed laterally. Electrocautery was used to dissect soft tissue off the superomedial tibia to the midsagittal plane. The knee was flexed up. The anterior horn of the lateral meniscus and the ACL were sharply incised. A drill was used to enter the distal femur. The intramedullary distal femoral cutting guide was pinned on the distal femur. The oscillating saw was used to make the distal femoral cut. The external rotation guide was pinned on the distal femur and the distal femur was sized to a size 5. The size 5 multi-cutting jig was pinned on the distal femur. The oscillating saw was used to make the appropriate 4 chamfer cuts. Next the PCL was completely released. The extramedullary tibial cutting guide was pinned on the proximal tibia and the oscillating saw was used to make the proximal tibial cut perpendicular to the mechanical axis of the tibia. The bone was carefully removed. The knee was brought out into full extension. The spacer block was placed and had excellent fit with the knee in full extension. The medial and lateral ligaments were well balanced. The flexion and extension gaps were well balanced. The knee was flexed up. Lamina air export operations agent was placed both medially and laterally. Any remaining meniscus was removed with electrocautery. Curved osteotome was used to remove any posterior osteophytes. The tibial tray and drop andressa were placed and confirmed a satisfactory tibial cut. The size 5 left narrow femoral trial was impacted onto the distal femur. This trial had excellent fit and stability. The box for the posterior stabilized implant was prepared using a box cut osteotome and a reamer. Next a tibial tray trial and 9 mm insert trial was placed. The knee was taken through a range of motion and had full extension to 130 degrees of flexion. Patellofemoral tracking was satisfactory. The patella was inverted and sized to a size 32. Three peg holes were drilled through the size 32 drill guide. The trial patella was placed and the knee was taken through a range of motion. There was satisfactory patellofemoral tracking. All trials were removed. The tibia was subluxed anteriorly and sized to a size 3. The proximal tibial was prepared with a size 3 keel punch. All bony cut surfaces were irrigated with sterile saline and dried. Final implants were cemented into place starting with the tibia, followed by the femur, and last the patella. A 9 mm insert trial was placed and the knee was brought into full extension. Tourniquet was turned down and the knee was copiously irrigated with sterile saline. Electrocautery was used to obtain meticulous hemostasis. Once the cement had fully cured, the insert trial was removed. Any excess cement was removed from around the hardware and capsule. Final insert chosen was a 9 mm posterior stabilized Obdulio II articular insert size 3-4. Stability of the insert was checked and noted to be stable. The extensor mechanism was closed using number 1 vicryls. The rest of the incision was closed in a layered fashion using 0 and 2-0 vicryls. The skin was closed using 3-0 nylon suture. Sterile xeroform, 4x4s and webril were used to cover the incision. Ventura wrap and cold pack were used to cover the dressings. The patients anesthesia was reversed without difficulty. She was taken to the PACU in stable condition. Intended weight-bearing will be as tolerated.
[2019-10-26] MEDS: Magnesium Hydroxide LIQ* 30 ML UDC PO SCH (21:54)
[2019-10-26] MEDS: Acetaminophen TAB* 325 MG PO SCH (21:54)
[2019-10-26] MEDS: Docusate CAP* 100 MG PO SCH (21:54)
[2019-10-26] MEDS: ceFAZolin 1 GM ADVAN(*) 1 GM in NS 0.9% 50 ML* 50 ML IVPB SCH (23:32)
[2019-10-26] MEDS: oxyCODONE TAB* 5 MG TAB PO PRN (23:32)
[2019-10-27] MEDS: oxyCODONE/Acetamin 5/325 MG* TAB PO PRN ×2 (03:18→10:56)
[2019-10-27] MEDS: oxyCODONE TAB* 5 MG TAB PO PRN (05:51)
[2019-10-27] MEDS: Acetaminophen TAB* 325 MG PO SCH ×2 (05:52→13:51)
[2019-10-27] MEDS ORDERED: Levothyroxine TAB* 75 MCG TAB PO SCH (06:00)
[2019-10-27 07:06] LABS: Hematocrit 31 % (35-47); Hemoglobin 10.4 g/dL (12.0-16.0); Mean Platelet Volume 8.2 fL (7.4-10.4); Platelet Count 260 10^3/uL (150-450)
[2019-10-27 07:24] LABS: BUN/Creatinine Ratio 16.1 (8-20); Calcium 8.9 mg/dL (8.6-10.3); EGFR African American 82.1 (>60); EGFR Non-African American 67.9 (>60); Potassium 4.4 mmol/L (3.5-5.0)
[2019-10-27] MEDS: ceFAZolin 1 GM ADVAN(*) 1 GM in NS 0.9% 50 ML* 50 ML IVPB SCH ×2 (07:30→14:56)
[2019-10-27] MEDS: Docusate CAP* 100 MG PO SCH (08:50)
[2019-10-27] MEDS: Magnesium Hydroxide LIQ* 30 ML UDC PO SCH (08:52)
[2019-10-27] MEDS ORDERED: Sertraline* 50 MG TAB PO SCH (09:00)
[2019-10-27] MEDS ORDERED: Apixaban* 2.5 MG TAB PO SCH (09:00)
[2019-10-27] MEDS ORDERED: Multivitamins/Minerals TAB PO SCH (09:00)
[2019-10-27] MEDS ORDERED: Cholecalciferol TAB* 1000 UNITS PO SCH (09:00)
[2019-10-27] MEDS ORDERED: BIOTIN PO SCH (09:00)
[2019-10-27] MEDS ORDERED: Vitamin THERAPEUTIC TAB PO SCH (09:00)
--- NOTE | 2019-10-27 10:10 | PN ---
Progress Note - Progress Note Date of Service: 10/27/19 SOAP: Subjective: [Pt was seen this am sitting up in bed after PT. She states that her pain is well controlled. She states that she is a little nauseous and dizzy after PT. She denies any chest pain, SOB, vomiting. She has yet to urinate or pass stool. She would like to go home today. ] Objective: [General: Pt is alert and oriented x 3. NAD. Appropriate mood, affect. MSK, LLE: Inspection of the left knee reveals dressing is c/d/i. Dressing was changed today. Incision is c/d/i without drainage or erythema. +df/pf. NVI distally. 2+ DP pulse. Vital Signs Temp 97.7 F 10/27/19 08:13 Pulse 65 10/27/19 10:08 Resp 18 10/27/19 08:52 BP 92/54 10/27/19 10:08 Pulse Ox 97 10/27/19 10:08 Intake & Output 10/26/19 10/27/19 10/27/19 18:59 06:59 18:59 Intake Total 560 1280 Output Total 1300 Balance -740 1280 Weight 163 lb 9.6 oz Intake: IV Fluids 990 LR 990 IVPB 50 ABX - CEFAZOLIN 50 Oral 560 240 Output: [place] 1300 Assessment: [POD 1 LTKA ] Plan: [PT/OT Vitals reveal BP that is 92/54. Encouraged to drink fluids. Will assess at next vitals check. Continue with eliquis Percocet for pain management. Possible DC today. ]
[2019-10-27 11:13] VITALS: BP 108/60
--- NOTE | 2019-10-27 13:07 | PN ---
Progress Note - Progress Note Date of Service: 10/27/19 SOAP: Subjective: OOB to chair, pain well controlled with PO meds Objective: Vital Signs Temp Pulse Resp BP Pulse Ox 97.8 F 77 16 108/60 100 10/27/19 11:12 10/27/19 11:12 10/27/19 11:12 10/27/19 11:12 10/27/19 11:12 Laboratory Last Values Hgb 10.4 g/dL (12.0-16.0) L 10/27/19 06:45 Hct 31 % (35-47) L 10/27/19 06:45 Plt Count 260 10^3/uL (150-450) 10/27/19 06:45 MPV 8.2 fL (7.4-10.4) 10/27/19 06:45 Sodium 139 mmol/L (135-145) 10/27/19 06:45 Potassium 4.4 mmol/L (3.5-5.0) 10/27/19 06:45 Chloride 108 mmol/L (101-111) 10/27/19 06:45 Carbon Dioxide 25 mmol/L (22-32) 10/27/19 06:45 Anion Gap 6 mmol/L (2-11) 10/27/19 06:45 BUN 14 mg/dL (6-24) 10/27/19 06:45 Creatinine 0.87 mg/dL (0.51-0.95) 10/27/19 06:45 Est GFR ( Amer) 82.1 (>60) 10/27/19 06:45 Est GFR (Non-Af Amer) 67.9 (>60) 10/27/19 06:45 BUN/Creatinine Ratio 16.1 (8-20) 10/27/19 06:45 Glucose 106 mg/dL (70-100) H 10/27/19 06:45 Calcium 8.9 mg/dL (8.6-10.3) 10/27/19 06:45 Blood Type A Positive 10/26/19 12:25 Antibody Screen Negative 10/26/19 12:25 incision: c/d/i PE: able DF/PF, 2+ DP pulse and intact sensation Assessment: s/p left TKA Plan: 1) PT/OT-WBAT 2) Eliquis for DVT prophylaxis 3) possibly home today if PT goals met
--- NOTE | 2019-10-27 15:05 | DS ---
Orthopedic Discharge Summary - Discharge Summary Date of Admission:10/26/19 Date of Discharge: 10/27/2019 Date of Surgery: 10/26/2019 Attending Orthopedic Provider: Dr. Chang Pre-operative Diagnosis: Left knee osteoarthritis Operative Procedure: Left total knee arthroplasty Disposition of Patient: Home Condition of Patient: Good History: NEEL RAY is a 54 year old F with years of increasingly severe left knee pain. Patient has failed conservative management and has elected to undergo a left total knee replacement Hospital Course: NEEL was admitted to [facility] on 10/26/19. Patient underwent a left total knee arthroplasty without complication followed by a brief recovery in PACU and transfer to the Short Stay Surgical Unit in stable condition. Our hospitalist service, physical therapy and occupational therapy also participated in this patients care. Post-op day 1: patient was alert and in no acute distress. Dressing was clean, dry and intact. Operative extremity dorsiflexion and plantarflexion intact, sensation intact to light touch distally, DP2+. Dressing was changed, incision was clean, dry and intact. Patient was deemed to be medically and orthopedically stable for discharge. Physical therapy goals were met. Home Medications Medication Instructions Recorded Confirmed Type Sertraline HCl [Zoloft] 50 mg PO QAM 10/24/13 10/26/19 History Acetaminophen TAB* [Tylenol TAB*] 975 mg PO Q4H PRN 07/04/16 10/26/19 History LoraTADine TAB(NF) [Claritin 10 MG 10 mg PO DAILY PRN 07/04/16 10/26/19 History TAB(NF)] Levothyroxine TAB* [Synthroid 75 75 mcg PO 0800 03/02/18 10/26/19 History MCG TAB*] Cholecalciferol TAB* [Vitamin D 1,000 unit PO QAM 01/16/19 10/26/19 History TAB*] Biotin 4,000 mcg PO QAM 10/09/19 10/26/19 History Multivit-Min/Iron/Folic/Lutein 1 each PO QAM 10/09/19 10/26/19 History [Multivitamin Women 50 Plus Tab] Apixaban* [Eliquis*] 2.5 mg PO BID tab 10/27/19 Rx oxyCODONE/Acetamin 5/325 MG* 1 tab PO Q4H PRN tab 10/27/19 Rx [Percocet 5/325 TAB*] oxyCODONE/Acetamin 5/325 MG* 2 tab PO Q4H PRN tab 10/27/19 Rx [Percocet 5/325 TAB*] Discharge Instructions following Orthopedic Surgery: Activity: * Weight Bearing as tolerated * Continue physical therapy and occupational therapy exercises as shown Wound care: * OK to shower on post-op day 3, no bathing, swimming, or submerging wound. * Use gentle soap, pat dry. Cover with gauze, DIONNE wrap or tape. * Visiting home nurse to do wound checks. Call Orthopedic office for: * Increased drainage * Redness * Increased pain * Fever Go to ER with shortness of breath or chest pain. Diet: * Regular diet * Increase fluids and fiber to prevent constipation. * Continue to use stool softeners, call office if no bowel motion within 48 hours. Medications See Home Medication List in your packet for medications that you should take after discharge. DVT Prophylaxis: Eliquis Dosin.5 mg, 1 tab every 12 hours x 30 days Pain Control: Percocet Dosin/325 mg 1-2 tabs by mouth every 4-6 hours as needed for pain. Maximum of 10 tabs per day. Please note that Percocet contains Tylenol (acetaminophen). Maximum daily dose of Tylenol is 4000 mg from all sources. Zofran 4mg as needed for nausea. Antibiotics are required prior to any dental work. FOLLOW UP: Follow up with [Bernardo] Within 10-14 days, call for appointment Please call our office with any questions or concerns ([phone])
[2019-10-28] MEDS ORDERED: Bisacodyl SUPP* 10 MG SUPP PR PRN (16:35)
== END 2019-10-27 15:50 | disposition home or self-care (01) ==
LOC: AA 11:17 → INTOOBSV 11:17 → SSU 21:10
PROVIDERS: ADMIT Orthopaedic Surgery Adult Reconstructive Orthopaedic Surgery; ATTEND Orthopaedic Surgery Adult Reconstructive Orthopaedic Surgery
DX: M17.12 Unilateral primary osteoarthritis, left knee (principal); E03.9 Hypothyroidism, unspecified; F41.9 Anxiety disorder, unspecified; Z79.899 Other long term (current) drug therapy; M25.562 Pain in left knee; Z98.84 Bariatric surgery status; Z90.710 Acquired absence of both cervix and uterus; K21.9 Gastro-esophageal reflux disease without esophagitis
CPT/HCPCS: 36415; 80048; 85014; 85018; 85049; 86850; 86900; 86901; 96374; 96375; 96376; A9270-GY; G0378; J0690; J1100; J2250; J2270; J2405; J2704; J2795; J3010; J3490